=== PATIENT | male | born 1950 | race Caucasian/White ===

== ENCOUNTER 2017-10-16 07:46 | Day surgery (SDC) | payer BC ==
[~2017-10-16 07:46] MED LIST: Bupivacaine 0.5% 30 ML SDV ONE; Lactated Ringers 1,000 ML IV SCH
[2017-10-16] MEDS ORDERED: Lidocaine 2% 5 ML SDV ONE (08:22)
[2017-10-16] MEDS ORDERED: Succinylcholine/Normal Saline 200 MG/10 ML Syringe ONE (08:22)
[2017-10-16] MEDS ORDERED: Rocuronium 10 MG/ML 10 ML Syringe ONE (08:22)
[2017-10-16] MEDS ORDERED: Propofol 200 MG/20 ML SDV ONE (08:23)
[2017-10-16] MEDS ORDERED: fentaNYL 100 MCG/2 ML SDV ONE ×2 (08:23→09:41)
[2017-10-16] MEDS ORDERED: Midazolam 1 MG/ML 2 ML SDV ONE (08:23)
--- NOTE | 2017-10-16 08:23 | PCM.PREANE ---
Preanesthetic Assessment - Anesthesia/Transfusion/Family Hx Anesthesia History: Prior Anesthesia Without Reaction Family History of Anesthesia Reaction: No Transfusion History: No Prior Transfusion(s) Intubation History: Unknown - Review of Systems General: No Symptoms Pulmonary: No Symptoms Cardiovascular: No Symptoms Gastrointestinal: No Symptoms Neurological: No Symptoms Other: Reports: None - Physical Assessment O2 Sat by Pulse Oximetry: 98 Respiratory Rate: 16 Vital Signs: Last Vital Signs Temp 36.4 C 10/16/17 08:04 Pulse 67 10/16/17 08:04 Resp 16 10/16/17 08:04 BP 145/80 H 10/16/17 08:04 Pulse Ox 98 10/16/17 08:04 Height: 1.73 m Weight: 95.708 kg ASA Class: 2 Mental Status: Alert & Oriented x3 Airway Class: Mallampati = 3 Dentition: Reports: Normal Dentition, Broken Tooth/Teeth (crack in front upper tooth (left)) Thyro-Mental Finger Breadths: 3 Mouth Opening Finger Breadths: 2 ROM/Head Extension: Limited/Partial Lungs: Clear to Auscultation, Normal Respiratory Effort Cardiovascular: Regular Rate, Regular Rhythm - Allergies Allergies/Adverse Reactions: Allergies Allergy/AdvReac Type Severity Reaction Status Date / Time No Known Allergies Allergy Verified 10/13/17 12:17 - Blood Blood Available: No - Anesthesia Plan Pre-Op Medication Ordered: None - Acknowledgements Anesthesia Type Planned: General Anesthesia Pt an Appropriate Candidate for the Planned Anesthesia: Yes Alternatives and Risks of Anesthesia Discussed w Pt/Guardian: Yes Pt/Guardian Understands and Agrees with Anesthesia Plan: Yes PreAnesthesia Questionnaire HEENT History: Reports: Other (See Below) Other HEENT History: wears glasses Gastrointestinal History: Reports: Diverticulosis, Other (See Below) Other Gastrointestinal History: hepatitis and yellow jaundice as a child Neurological History: Reports: Concussion Endocrine/Metabolic History: Reports: Obesity/BMI 30+ - Past Surgical History Head Surgeries/Procedures: Reports: None HEENT Surgical History: Reports: Other (See Below) Other HEENT Surgeries/Procedures: eye surgery as a child GI Surgical History: Reports: Appendectomy, Colonoscopy, Hernia, Inguinal Dermatological Surgical History: Reports: Other (See Below) (exc. of neck lipoma 10 years ago (recurrence)) - SUBSTANCE USE Smoking Status *Q: Former Smoker Days Per Week of Alcohol Use: 7 Number of Drinks Per Day: 2 Total Drinks Per Week: 14 Recreational Drug Use History: No - HOME MEDS Home Medications: Home Meds Ginkgo Biloba 1 tab PO ASDIRECTED 10/13/17 [History] Lutein/Zeaxanthin [Lutein-Zeaxanthin 25-5 mg Sfgl] 1 tab PO ASDIRECTED 10/13/17 [History] Saw [place] 1 tab PO WEEKLY 10/13/17 [History] - CURRENT (IN HOUSE) MEDS Current Meds: Current Medications Lactated Ringer's (Ringers, Lactated) 1,000 mls @ 125 mls/hr IV ASDIRECTED [facility] Last Admin: 10/16/17 08:07 Dose: 125 mls/hr Discontinued Medications Bupivacaine HCl (Marcaine 0.5%) Confirm Administered Dose 30 ml .ROUTE .STK-MED ONE Stop: 10/16/17 07:27
[2017-10-16] MEDS ORDERED: Acetaminophen/HYDROcodone 325-5 MG Tab PO PRN (10:19)
[2017-10-16] MEDS ORDERED: Morphine 10 MG/ML Syringe IVPUSH PRN (10:19)
--- NOTE | 2017-10-16 10:21 | PCM.OPNOTE ---
- General Post-Op/Procedure Note Date of Surgery/Procedure: 10/16/17 Operative Procedure(s): Excision, recurrent posterior neck mass Pre Op Diagnosis: Recurrent posterior neck mass Post-Op Diagnosis: 4 cm x 5.5 cm posterior neck mass Anesthesia Technique: General ET Tube (ASA II) Primary Surgeon: Jm Martinez Fluid Replacement, Intraop: 1,000 EBL in mLs: 5 Condition: Good Free Text/Narrative:: Dictation [id number] CPT CODE [id number]
[2017-10-16] MEDS ORDERED: Lactated Ringers 1,000 ML IV SCH (10:30)
--- NOTE | 2017-10-16 10:41 | OR ---
SURGEON: Jm Martinez M.D. DATE OF PROCEDURE: 10/16/2017 OPERATION PERFORMED: Excision of recurrent posterior neck mass. ANESTHESIA: General endotracheal. ASA CLASSIFICATION: II. PREOPERATIVE DIAGNOSIS: Recurrent neck mass. POSTOPERATIVE DIAGNOSIS: Recurrent neck mass. ESTIMATED BLOOD LOSS: 5 mL. INTRAOPERATIVE FLUID REPLACEMENT: 1000 mL of crystalloid. DESCRIPTION OF PROCEDURE: The patient was taken to the operating room, kept on the transfer cart in the supine position. Following satisfactory attainment of general endotracheal anesthesia, the patient was positioned on the operating table in the left lateral decubitus position on the beanbag. Care was taken to pad all bony prominences and place an axillary roll. The surgical site was then prepped with Betadine and sterile drapes were applied. The skin incision was made directly through the old midline incision and deepened through the subcutaneous tissue with electrocautery. Hemostasis was obtained with the use of electrocautery. Dissection was carried down to the soft tissue mass and using a combination of electrocautery and blunt dissection, the mass was removed. Clinically, this had the appearance of a lipoma and measured 4 x 5.5 cm. Bleeding sites were electrocoagulated. The incision was irrigated with sterile saline solution. The subcutaneous tissue was closed with running 3-0 Polysorb and the skin with running locked 3-0 nylon. The wound was then dressed with a sterile Tegaderm pad after the skin had been infiltrated with 10 mL of 0.5% Marcaine solution. The patient tolerated the procedure well. He was placed back on the transfer cart in the supine position. Following emergence from anesthesia and extubation, he was taken to the recovery room in stable condition. CHAVA / LUIZ /[id number]
== END 2017-10-16 11:50 | disposition home or self-care (01) ==
LOC: MW.SDS 07:46
PROVIDERS: ATTEND Surgery
DX: D17.0 Benign lipomatous neoplasm of skin and subcutaneous tissue of head, face and neck (principal); E66.9 Obesity, unspecified; Z90.49 Acquired absence of other specified parts of digestive tract; Z87.891 Personal history of nicotine dependence; Z68.32 Body mass index [BMI] 32.0-32.9, adult
CPT/HCPCS: 11426; J2250; J3010; J7120; 00300; 88304; J2704